=== PATIENT | female | born 1955 | race Caucasian/White ===

== ENCOUNTER → 2018-02-22 | Outpatient (CLI) | payer MEDICARE, BC | END | disposition home or self-care (01) | LOC: CFH 12:52 | DX: Z13.820 Encounter for screening for osteoporosis (principal); N95.9 Unspecified menopausal and perimenopausal disorder | CPT/HCPCS: 77080 ==

== ENCOUNTER 2018-09-26 09:49 | Inpatient (IN) | payer OTHER ==
[~2018-09-26] VITALS: Ht 170.2 cm; Wt 67.0 kg
--- NOTE | 2018-09-26 10:15 | NUR ---
PT BIB FRIEND FOR THREE EPISODES OF SYNCOPE WITH ONE EPISODE OF PASSING OUT I THE CAR WHILE THE FRIEND WAS DRIVING FOR ABOUT A MINUTE. PT REPORTS REN NOW AND HAS LACERATION TO RIGHT OCCIPUT. PT HAD NAUSEA PRIOR TO PASSING OUT SHE STATED. ALL OF HER SYMPTOMS STARTED THIS AM WITH "NORMAL PHYSICAL ONE WEEK AGO." PT ON MONITOR.
--- NOTE | 2018-09-26 10:20 | NUR ---
PER DAVID PAC PT PASSED OUT DURING HER EXAM AND HER HR WENT TO ASYSTOLE. PT TO BE MOVED TO TRAUMA ROOM.
[2018-09-26] MEDS ORDERED: MORPHINE SULFATE 4 MG/ML, 1ML ONE (10:29)
[2018-09-26] MEDS ORDERED: ONDANSETRON 2MG/ML, 2ML ONE (10:29)
[2018-09-26 10:30] LABS: BASOPHILS # (AUTO) 0.02 x10^3/uL (0-0.1); BASOPHILS % (AUTO) 1 % (0-1); EOSINOPHILS # (AUTO) 0.02 x10^3/uL (0-0.4); EOSINOPHILS % (AUTO) 1 % (1-7); LYMPHOCYTES % (AUTO) 33 % (22-44); MD NO; MEAN CORPUSCULAR HEMOGLOBIN 28.8 pg (27.0-34.8); MEAN CORPUSCULAR HGB CONC 33.5 g/dL (32.4-35.8); MEAN CORPUSCULAR VOLUME 86.1 fL (80-100); MEAN PLATELET VOLUME 8.1 fL (7.4-10.4); MONOCYTES # (AUTO) 0.31 x10^3/uL (0.2-0.8); MONOCYTES % (AUTO) 8 % (2-9); NEUTROPHILS # (AUTO) 2.23 x10^3/uL (1.8-6.8); NEUTROPHILS % (AUTO) 57 % (42-75); PLATELET COUNT 214 x10^3/uL (130-400); RED BLOOD COUNT 4.89 x10^6/uL (3.82-5.3); RED CELL DISTRIBUTION WIDTH 13.5 % (9.6-15.2)
[2018-09-26] MEDS ORDERED: ASPIRIN 81 MG TABLET CHEW PO ONE (10:30)
[2018-09-26] MEDS ORDERED: SODIUM CHLORIDE FLUSH 10ML SYR IVF ONE (10:30)
[2018-09-26] MEDS ORDERED: ONDANSETRON 2MG/ML, 2ML IVPush ONE (10:30)
[2018-09-26] MEDS ORDERED: SODIUM CHLORIDE 0.9% 1,000ML IVBOLUS ONE (10:30)
--- NOTE | 2018-09-26 10:33 | NUR ---
REPORT TO ISRAEL GARCIA.
[2018-09-26 10:41] LABS: ALBUMIN 4.1 g/dL (3.4-5.0); ANION GAP 9 mmol/L (5-15); CALCIUM 9.1 mg/dL (8.5-10.1); CHLORIDE 105 mmol/L (98-107)
[2018-09-26 10:47] LABS: ALANINE AMINOTRANSFERASE 33 U/L (12-78); ALKALINE PHOSPHATASE 67 U/L (45-117); BILIRUBIN,TOTAL 0.6 mg/dL (0.2-1.0); CREATININE 0.77 mg/dL (0.55-1.02); TOTAL PROTEIN 7.5 g/dL (6.4-8.2); TROPONIN I < 0.015 ng/mL (0.000-0.045)
[2018-09-26] MEDS ORDERED: SODIUM CHLORIDE 0.9% 1,000 ML IV SCH (11:00)
[2018-09-26] MEDS ORDERED: ZOLPIDEM 5MG TABLET PO PRN ×2 (11:00→14:30)
[2018-09-26] MEDS ORDERED: ACETAMINOPHEN 325 MG TABLET PO PRN ×2 (11:00→14:30)
[2018-09-26] MEDS: SODIUM CHLORIDE 0.9% 1,000 ML IV SCH ×2 (11:05→18:13)
--- NOTE | 2018-09-26 11:14 | NUR ---
DR REINA BS TALKING W/ PT. PT A&OX4, RESP EVEN & UNLABORED, SPEECH CLEAR, SKIN WNL. CARDIAC & VS MONITORING EQUIPMENT ON, IV NS INFUSING AT TKO; SITE PATENT. MONITOR: SINUS CRISELDA, RATE 56. VIDHI PRESENT LT POSTERIOR HEAD LAC. ICE PACK PLACED BEHIND HEAD. PT STATED SHE DOES NOT WANT MORPHINE FOR PAIN - "IT MAKES ME NAUSEAOUS" (DR HSU WAS NOTIFIED OF PT PREFERENCE). PT'S DAUGHTER, MALKA, AT BS. Addendum: 09/26/18 at 1138 by JAG CORRECTION: LAC TO RT POSTERIOR HEAD
[2018-09-26 11:20] LABS: FREE T4 (FREE THYROXINE) 1.5 ng/dL (0.76-1.46); THYROID STIMULATING HORMONE 3.23 mIU/L (0.358-3.740)
[2018-09-26] MEDS ORDERED: THYROID (11:22)
--- NOTE | 2018-09-26 11:26 | NUR ---
LAST ORAL: ABOUT 0700 TODAY.
[2018-09-26] MEDS ORDERED: CEFAZOLIN PMX 1GM/50ML 50 ML IVPB ONE (11:30)
--- NOTE | 2018-09-26 11:30 | NUR ---
PER DR REINA, OR CONSENT WILL BE COMPLETED IN SURG DEPT.
--- NOTE | 2018-09-26 11:32 | NUR ---
PT CLARIFIED MORPHINE COMMENT: STATES SHE REFUSED MORPHINE DUE TO POSSIBLE NAUSEA SIDE EFFECT; MAY BE WILLING TO TAKE MORPHINE POST-PROCEDURE.
--- NOTE | 2018-09-26 11:38 | NUR ---
XR AT BS.
--- NOTE | 2018-09-26 11:41 | NUR ---
PT REPORT TO JOSE MUSE FOR ROOM 511. PT SCHEDULED FOR OR AT APPROXIMATELY 12:30, PER DR REINA.
[2018-09-26] MEDS ORDERED: LEVO88TA2 PO (12:11)
--- NOTE | 2018-09-26 12:16 | NUR ---
ICE PACK REMOVED. PT STATES HER HEARING AIDS ARE AT HOME; DAUGHTER WILL BRING THEM IN LATER.
--- NOTE | 2018-09-26 12:38 | NUR ---
CALLED AUTOMATIC GRINDING MACHINE OPERATOR FOR OR STATUS; PER REBEKA DANIELS APPROXIMATELY 15 MINS. PT & DAUGHTER NOTIFIED. PT RESTING QUIETLY. MONITORING CONTINUES: SINUS CRISELDA, RATE 55.
[2018-09-26] MEDS ORDERED: FENTANYL PF 100 MCG/2ML ONE (12:39)
[2018-09-26] MEDS ORDERED: CEFAZOLIN PMX 1GM/50ML 50 ML ONE (12:39)
[2018-09-26] MEDS ORDERED: CEFAZOLIN 1,000 MG ONE (12:39)
[2018-09-26] MEDS ORDERED: MIDAZOLAM 1 MG/ML, 5ML ONE (12:39)
[2018-09-26] MEDS ORDERED: LIDOCAINE 2%, 20ML ONE (12:39)
--- NOTE | 2018-09-26 12:45 | NUR ---
NICOLETTE ANDERSON OUT OF ANCEF DRIP. SYSTEM CHECK SHOWS ANCEF IN BATTERY HAND. WILL NOTIFY BATTERY HAND OF ANCEF STATUS
[2018-09-26] MEDS ORDERED: HOLD MEDICATION MC PRN (14:30)
[2018-09-26 14:51] VITALS: BP 141/79
[2018-09-26 19:35] VITALS: BP 108/67
[2018-09-26] MEDS: CEFAZOLIN PMX 1GM/50ML 50 ML IVPB SCH (20:31)
[2018-09-26] MEDS ORDERED: SODIUM CHLORIDE FLUSH 10ML SYR IVF SCH ×2 (21:00)
[2018-09-27 01:38] VITALS: BP 132/78
[2018-09-27] MEDS: SODIUM CHLORIDE 0.9% 1,000 ML IV SCH (03:08)
[2018-09-27] MEDS: CEFAZOLIN PMX 1GM/50ML 50 ML IVPB SCH (04:52)
[2018-09-27] MEDS ORDERED: LEVOTHYROXINE 88 MCG TABLET PO SCH ×2 (06:00)
[2018-09-27 07:21] VITALS: BP 127/74
== END 2018-09-27 12:00 | disposition home or self-care (01) | DRG 242 ==
LOC: ED 10:54 → EDIP 10:55 → ED 11:02 → 5SO 14:48 → DCLOUNGE 09-27 11:42
PROVIDERS: ADMIT Internal Medicine; ATTEND Internal Medicine
PROC: 0JH606Z Insertion of Pacemaker, Dual Chamber into Chest Subcutaneous Tissue and Fascia, Open Approach (ICD-10-PCS; principal; 2018-09-26)
PROC: 02H63JZ Insertion of Pacemaker Lead into Right Atrium, Percutaneous Approach (ICD-10-PCS; 2018-09-26)
PROC: 02HK3JZ Insertion of Pacemaker Lead into Right Ventricle, Percutaneous Approach (ICD-10-PCS; 2018-09-26)
PROC: 0HQ0XZZ Repair Scalp Skin, External Approach (ICD-10-PCS; 2018-09-26)
DX: I49.5 Sick sinus syndrome (principal); I46.9 Cardiac arrest, cause unspecified; E03.9 Hypothyroidism, unspecified; S01.01XA Laceration without foreign body of scalp, initial encounter; X58.XXXA Exposure to other specified factors, initial encounter; Z88.8 Allergy status to other drugs, medicaments and biological substances; Y93.89 Activity, other specified; Y92.89 Other specified places as the place of occurrence of the external cause; Y99.8 Other external cause status
CPT/HCPCS: 0399T; 33208; 36415; 70450; 71045; 72125; 80053; 83735; 83880; 84100; 84439; 84443; 84484; 85014; 85018; 85025; 93005; 93306; 96374; 99156; 99157; 99285; C1779; C1785; C1892; G0378; J0690; J2250; J2405; J3010; J3490; Q9967